=== PATIENT | male | born 1980 | race Caucasian/White ===

== ENCOUNTER 2019-06-10 21:48 | Emergency (ER) | payer BC ==
[~2019-06-10] VITALS: Ht 172.7 cm; Wt 76.0 kg
[2019-06-10] MEDS ORDERED: ONDANSETRON HCL 4MG/2ML INJ IV ONE (23:45)
[2019-06-11 00:08] LABS: HEMATOCRIT. 41.1 % (42.0-52.0); HEMOGLOBIN. 14.5 g/dL (14.0-18.0); MEAN CORPUSCULAR HEMOGLOBIN 34.8 pg (28.0-32.0); MEAN CORPUSCULAR VOLUME 98.9 fL (80.0-94.0); MEAN PLATELET VOLUME 6.8 fl (7.4-10.4); PLATELET 161 x1000/uL (130-400); RED BLOOD CELL COUNT 4.16 mill/uL (4.7-6.1); RED CELL DISTRIBUTION WIDTH 12.8 % (11.6-14.6)
[2019-06-11 00:17] LABS: CHLORIDE 101 mEq/L (98-107)
[2019-06-11 00:21] LABS: ETHANOL BLOOD < 10 mg/dL
[2019-06-11 01:50] VITALS: BP 125/79
[2019-06-11 07:38] LABS: PLATELET ESTIMATE NORMAL
== END 2019-06-11 02:00 | disposition home or self-care (01) ==
LOC: ER 21:48
DX: R56.9 Unspecified convulsions (principal); R74.0 Nonspecific elevation of levels of transaminase and lactic acid dehydrogenase [LDH]; E80.6 Other disorders of bilirubin metabolism
CPT/HCPCS: 36415; 70450; 80053; 80320; 82962; 85025; 96374; 99284; J2405; G0480